=== PATIENT | female | born 1990 | race Caucasian/White ===

== ENCOUNTER 2017-04-26 14:22 | Emergency (ER) | payer BC, OTHER ==
[2017-04-26 14:27] VITALS: BP 146/70
[2017-04-26] MEDS ORDERED: diphenhydrAMINE 50 MG/ML SDV IVPUSH ONE (14:31)
[2017-04-26] MEDS ORDERED: Sodium Chloride 0.9% 10 ML Syringe FLUSH PRN ×2 (14:31)
[2017-04-26] MEDS ORDERED: EPINEPHrine 1 MG/ML SDV IM ONE (14:31)
[2017-04-26] MEDS ORDERED: methylPREDNISolone Sodium Succinate 125 MG/2 ML SDV IV ONE (14:31)
--- NOTE | 2017-04-26 14:36 | EDM.PDOC ---
ED HPI GENERAL MEDICAL PROBLEM - General Chief Complaint: Allergic Reaction Stated Complaint: BEE STING Time Seen by Provider: 04/26/17 14:28 Source of Information: Reports: Patient History Limitations: Reports: No Limitations - History of Present Illness INITIAL COMMENTS - FREE TEXT/NARRATIVE: 26-year-old female presents emergency department today following a bee sting the back and neck she's never had allergic reaction before but she feels like her throat is getting tight and hard to breathe and she is a rashes developed over her entire body - Related Data Allergies Allergy/AdvReac Type Severity Reaction Status Date / Time sulfamethoxazole Allergy Hives Verified 08/02/15 08:14 [From Bactrim] trimethoprim [From Bactrim] Allergy Hives Verified 08/02/15 08:14 vicryl suture Allergy Hives Uncoded 08/02/15 08:05 Home Meds: Home Meds NK [No Known Home Meds] 08/02/15 [History] Past Medical History - Past Health History Medical/Surgical History: Denies Medical/Surgical History Social & Family History - Recreational Drug Use Recreational Drug Use: No ED ROS ALLERGIC REACTION - Review of Systems Review Of Systems: See Below Constitutional: Reports: No Symptoms HEENT: Reports: Throat Swelling Respiratory: Reports: Shortness of Breath Cardiovascular: Reports: No Symptoms Endocrine: Reports: No Symptoms : Reports: No Symptoms Skin: Reports: Rash ED EXAM GENERAL NO PERIP PULSE - Physical Exam Exam: See Below Exam Limited By: Respiratory Distress General Appearance: Alert, Moderate Distress Throat/Mouth: Normal Inspection, Normal Lips, Normal Teeth, Normal Gums, Normal Oropharynx, Normal Voice, No Airway Compromise Head: Atraumatic, Normocephalic Neck: Normal Inspection, Supple, Non-Tender, Full Range of Motion Respiratory/Chest: Lungs Clear, Normal Breath Sounds, Respiratory Distress Cardiovascular: No Murmur, Tachycardia Skin Exam: Warm, Erythema, Rash, Other (hives) Course - Vital Signs Last Recorded V/S: Last Vital Signs Temp 98.8 F 04/26/17 14:29 Pulse 136 H 04/26/17 14:29 Resp 18 04/26/17 14:29 BP 146/70 H 04/26/17 14:29 Pulse Ox 99 04/26/17 14:29 - Orders/Labs/Meds Orders: Active Orders 24 hr Category Date Time Status Peripheral IV Care [RC] . DIRECTED Care 04/26/17 14:31 Active Sodium Chloride 0.9% [Saline Flush] Med 04/26/17 14:31 Active 10 ml FLUSH ASDIRECTED PRN Sodium Chloride 0.9% [Saline Flush] Med 04/26/17 14:31 Active 10 ml FLUSH ASDIRECTED PRN Peripheral IV Insertion Adult [OM.PC] Urgent Oth 04/26/17 14:31 Ordered Medication Orders Sodium Chloride (Saline Flush) 10 ml FLUSH ASDIRECTED PRN PRN Reason: Keep Vein Open Last Admin: 04/26/17 14:41 Dose: 10 ml Sodium Chloride (Saline Flush) 10 ml FLUSH ASDIRECTED PRN PRN Reason: Keep Vein Open Last Admin: 04/26/17 14:48 Dose: 10 ml Meds: Medications Generic Name Dose Route Start Last Admin Trade Name Freq PRN Reason Stop Dose Admin Sodium Chloride 10 ml 04/26/17 14:31 04/26/17 14:41 Saline Flush FLUSH 10 ml ASDIRECTED PRN Administration Keep Vein Open Sodium Chloride 10 ml 04/26/17 14:31 04/26/17 14:48 Saline Flush FLUSH 10 ml ASDIRECTED PRN Administration Keep Vein Open Discontinued Medications Generic Name Dose Route Start Last Admin Trade Name Freq PRN Reason Stop Dose Admin Diphenhydramine HCl 50 mg 04/26/17 14:31 04/26/17 14:38 Benadryl IVPUSH 04/26/17 14:32 50 mg ONETIME ONE Administration Epinephrine HCl 0.5 mg 04/26/17 14:31 04/26/17 14:31 Adrenalin 1:1000 IM 04/26/17 14:32 0.5 mg ONETIME ONE Administration Methylprednisolone Sodium Succinate 125 mg 04/26/17 14:31 04/26/17 14:42 Solu-Medrol IV 04/26/17 14:32 125 mg ONETIME ONE Administration Departure - Departure Time of Disposition: 14:57 Disposition: Home, Self-Care 01 Condition: Good Clinical Impression: Anaphylactic reaction to bee sting Qualifiers: Encounter type: initial encounter Injury intent: accidental or unintentional Qualified Code(s): T63.441A - Toxic effect of venom of bees, accidental ( unintentional), initial encounter - Discharge Information Forms: ED Department Discharge Additional Instructions: Recommend filling the prescription for the injectable epinephrine, use as needed , Please followup with your primary care provider in 3-5 days if not better, please call return to the emergency department with worsening of symptoms. - My Orders Last 24 Hours: My Active Orders 04/26/17 14:31 Peripheral IV Care [RC] . DIRECTED Sodium Chloride 0.9% [Saline Flush] 10 ml FLUSH ASDIRECTED PRN Sodium Chloride 0.9% [Saline Flush] 10 ml FLUSH ASDIRECTED PRN Peripheral IV Insertion Adult [OM.PC] Urgent - Assessment/Plan Last 24 Hours: My Active Orders 04/26/17 14:31 Peripheral IV Care [RC] . DIRECTED Sodium Chloride 0.9% [Saline Flush] 10 ml FLUSH ASDIRECTED PRN Sodium Chloride 0.9% [Saline Flush] 10 ml FLUSH ASDIRECTED PRN Peripheral IV Insertion Adult [OM.PC] Urgent Plan: Assessment Acuity = acute Site and laterality = anaphylactic reaction Etiology = secondary to be venom Manifestations = none Location of injury = Home Lab values = none Plan Excellent recovery with 0.5 mg epinephrine 1:1000, 50 mg Benadryl and 125 mg Solu-Medrol, prescription written for injectable epinephrine follow-up primary care in 3-5 days if no improvement Patient was in agreement with the plan all questions were answered, they were instructed to return to the emergency department or call for worsening symptoms. This note was dictated using [employer] voice recognition software please call with any questions.
== END 2017-04-26 15:42 | disposition home or self-care (01) ==
LOC: JP.ED 14:22
DX: T63.441A Toxic effect of venom of bees, accidental (unintentional), initial encounter (principal); T78.2XXA Anaphylactic shock, unspecified, initial encounter; R00.0 Tachycardia, unspecified; Z88.1 Allergy status to other antibiotic agents; Z88.8 Allergy status to other drugs, medicaments and biological substances
CPT/HCPCS: 96374; 96375; 99283; J0171; J1200; J2930; J7050